=== PATIENT | male | born 2000 | race Caucasian/White ===

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

== ENCOUNTER 2023-03-28 08:56 | Emergency (ER) | payer MEDICAID, SELFPAY ==
[2023-03-28 08:57] VITALS: BP 175/101; PULSE 81; RESP 14; TEMP 35.5; O2SAT 98; BMI 44.7
--- NOTE | 2023-03-28 09:38 | NURSING ---
NO OLD EKGS
[2023-03-28 09:56] VITALS: RESP 18
--- NOTE | 2023-03-28 10:00 | RAD_ITS ---
STUDY: X-RAY CHEST REASON FOR EXAM: Male, 22 years old. Chest pain TECHNIQUE: Single AP portable view of the chest. COMPARISON: None. FINDINGS: EKG electrodes are seen. The lungs are clear and expanded. There is no demonstrated pleural abnormality. Normal size heart. Normal mediastinum and ranjit. Normal visualized pulmonary arteries. Normal visualized aortic arch and descending thoracic aorta. Normal visualized thoracic spine. Normal visualized ribs, clavicles, and shoulders. There is no demonstrated abnormality of the visualized soft tissue structures of the upper abdomen. RAD/Chest 1 View (Portable) IMPRESSION: Normal x-ray examination of the chest. Electronically Signed: Aguilar Baires MD at 10:23 EDT ,
[2023-03-28 10:07] LABS: Absolute Lymphocyte Count 2.37 X10^3/uL (0.83-4.51); Basophil# 0.05 X10^3/uL; Basophil% 0.5 % (0-1); Eosinophil# 0.13 X10^3/uL; Eosinophils% 1.4 % (0-5); Hematocrit 44.2 % (40-54); Hemoglobin 14.4 g/dL (13.0-16.5); Lymphocyte # 2.37 X10^3/ul (0.83-4.51); Lymphocyte % 25.3 % (19-41); Mean Corp Hgb Conc 32.6 g/dL (32-36); Mean Corpuscular Hgb 28.1 pg (27.0-32.0); Mean Corpuscular Volume 86.3 fL (80-94); Monocyte% 8.5 % (0-10); NRBC Flagged by Analyzer 0 % (0-5); Neutrophil # 5.98 X10^3/uL (2.7-7.7); Neutrophil % 63.9 % (47-70); Platelet Count 369 K/mm3 (150-450); RBC Distribution Width CV 12.9 % (11.6-14.6); RBC Distribution Width SD 40.2 fl (35.1-43.9); Red Blood Count 5.12 M/mm3 (4.6-6.2); White Blood Count 9.4 K/mm3 (4.4-11.0)
[2023-03-28 10:19] LABS: Anion Gap 6 (5-15); BUN 12 mg/dL (7-18); BUN/Creat Ratio 16.5 RATIO (10-20); Calcium,Total 9.3 mg/dL (8.5-10.1); Chloride 110 mmol/L (98-107); Creatinine, Serum 0.73 mg/dL (0.70-1.30); EST Glomerular Filtration Rate 143 mL/min (>60); Est Glom Filt Rate - Afr Amer 172 mL/min (>60); Estimated Creatinine Clearance 189.71 ml/min; Glucose 86 mg/dL (74-106); Potassium 4.5 mmol/L (3.5-5.1); Sodium Level 140 mmol/L (136-145); Troponin-I HS (w/2H Reflex) 7 pg/mL (3.0-78.0)
--- NOTE | 2023-03-28 10:19 | CT_ITS ---
STUDY: CT BRAIN WITHOUT CONTRAST REASON FOR EXAM: Male, 22 years old. altered mental status following the syncopal episode. RADIATION DOSAGE (If Supplied By Facility): CTDIvol = ( 44.99 ) mGy, DLP = ( 1559.91 ) mGycm TECHNIQUE: Transaxial CT imaging of the brain was performed without administration of intravenous contrast material. Individualized dose optimization techniques were used for this CT. COMPARISON: No relevant priors. FINDINGS: Normal soft tissue structures. Normal calvarium. Normal size ventricles and extra-axial spaces for the patient''s age. Normal white matter tracts of the cerebral hemispheres. Normal basal ganglia and thalami. Normal brainstem. Normal cerebellum. There is no intracranial hemorrhage. There are no findings of an acute ischemic infarction. Normal visualized paranasal sinuses. CT/Brain/Head without Contrast IMPRESSION: Normal unenhanced CT scan of the brain. Electronically Signed: Aguilar Baires MD at 12:46 EDT ,
--- NOTE | 2023-03-28 10:19 | CT_ITS ---
STUDY: CT CERVICAL SPINE WITHOUT CONTRAST REASON FOR EXAM: Male, 22 years old. Neck injury following a syncopal episode. RADIATION DOSAGE (If Supplied By Facility): CTDIvol = ( 36.03 ) mGy, DLP = ( 1559.91 ) mGycm TECHNIQUE: High resolution transaxial imaging was performed without contrast material. Sagittal and coronal images were reconstructed. Individualized dose optimization techniques were used for this CT. COMPARISON: None FINDINGS: Normal craniovertebral junction. Normal anterior atlantoaxial articulation. Normal odontoid process. There is straightening of the normal cervical lordosis. Normal vertebral bodies and posterior osseous elements. C2-3: Normal endplates. Normal disc height and morphology. Normal central canal and intervertebral neuroforamina. C3-4: Normal endplates. Normal disc height and morphology. Normal central canal and intervertebral neuroforamina. C4-5: Normal endplates. Normal disc height and morphology. Normal central canal and intervertebral neuroforamina. C5-6: Normal endplates. Normal disc height and morphology. Normal central canal and intervertebral neuroforamina. C6-7: Normal endplates. Normal disc height and morphology. Normal central canal and intervertebral neuroforamina. C7-T1: Normal endplates. Normal disc height and morphology. Normal central canal and intervertebral neuroforamina. Normal visualized soft tissue structures. CT/Spine Cervical without Contras IMPRESSION: There is straightening of the normal cervical lordosis. Electronically Signed: Aguilar Baires MD at 12:47 EDT ,
--- NOTE | 2023-03-28 10:21 | EX.ED.DYSGE1 ---
HPI History of Present Illness Chief Complaint: Syncope Narrative Narrative: This is a 22-year-old male presenting with an episode of syncope. This was unwitnessed. Mother states that her son was awake because he lives with her and she left for work. She called to see if he had gotten out of bed and it woke him up and he was laying on the floor. He states he was probably on the floor for about 25 minutes. He admitted to his mother on the way to the hospital this is happened a few times this last month. He states he does not have any prodrome prior to the incident. He states he can just be sitting playing video games and then wake up on the floor. Today it is occurred after waking up. No history of seizure disorder. Mother states that he seems a little bit confused currently and has been this way throughout the month and she did not know why, although she did not know he was having his episodes. Since they are unwitnessed we do not know if they were seizure. He has no loss of bladder or bowel. He has not bitten his tongue. Mother states that in he was told that he had underactive thyroid. Did not know what he is followed up to see if his thyroid is still underactive. Mother states that after that time he started packing on weight. Patient does not have chest pain or shortness of breath. He does have some element of chronic diarrhea the mother states. He has not had a fever, chills. He states he smokes marijuana but does not do other drugs. He is not a drinker. [facility] Home Medications NK 03/28/23 [History Last Taken Unknown] Allergy/AdvReac Type Severity Reaction Status Date / Time Penicillins Allergy Anaphylaxis Verified 07/18/16 16:36 Social History Smoking Status: Never smoker ROS ROS ED Constitutional Constitutional ED: Denies chills or fever(s) Eyes Eyes: Denies blurry vision or change in vision ENT ENT ED: Denies rhinorrhea or sore throat Cardiovascular Cardiovascular: Denies chest pain or palpitations Respiratory/Chest Respiratory/Chest: Denies cough or dyspnea Gastrointestinal Gastrointestinal: Reports diarrhea; Denies abdominal pain Genitourinary Genitourinary ED: Denies dysuria or hematuria Musculoskeletal Musculoskeletal: Denies arthralgias Integumentary Denies Abrasions Neurologic Neurologic: Denies headache(s) Psychiatric Psychiatric: Denies anxiety or depression EXAM Physical Exam Const Vital Signs: 03/28/23 08:57 03/28/23 09:11 03/28/23 09:35 Temperature 96 F L Temperature Source Temporal Pulse Rate 81 Pulse Rate [Lying] Pulse Rate [Sitting (for 1 minute prior to obtaining)] Pulse Rate [Standing (for 1 minute prior to obtaining)] Respiratory Rate 14 Respiratory Effort Normal Non-Labored Respiratory Pattern Normal Blood Pressure 175/101 H Blood Pressure [Lying] Blood Pressure [Sitting (for 1 minute prior to obtaining)] Blood Pressure [Standing (for 1 minute prior to obtaining)] Blood Pressure Mean 125 Blood Pressure Mean [Lying] Blood Pressure Mean [Sitting (for 1 minute prior to obtaining)] Blood Pressure Mean [Standing (for 1 minute prior to obtaining)] Pulse Ox 98 Oxygen Delivery Method Room Air Room Air 03/28/23 09:38 03/28/23 10:49 03/28/23 10:50 Temperature Temperature Source Pulse Rate Pulse Rate [Lying] 65 Pulse Rate [Sitting (for 1 minute prior to obtaining)] 73 Pulse Rate [Standing (for 1 minute prior to obtaining)] 85 Respiratory Rate Respiratory Effort Respiratory Pattern Blood Pressure Blood Pressure [Lying] 144/77 H Blood Pressure [Sitting (for 1 minute prior to obtaining)] 108/81 H Blood Pressure [Standing (for 1 minute prior to obtaining)] 132/70 H Blood Pressure Mean Blood Pressure Mean [Lying] 99 Blood Pressure Mean [Sitting (for 1 minute prior to obtaining)] 90 Blood Pressure Mean [Standing (for 1 minute prior to obtaining)] 90 Pulse Ox Oxygen Delivery Method Room Air 03/28/23 09:56 03/28/23 10:56 03/28/23 11:56 Temperature Temperature Source Pulse Rate Pulse Rate [Lying] Pulse Rate [Sitting (for 1 minute prior to obtaining)] Pulse Rate [Standing (for 1 minute prior to obtaining)] Respiratory Rate 18 18 18 Respiratory Effort Respiratory Pattern Blood Pressure Blood Pressure [Lying] Blood Pressure [Sitting (for 1 minute prior to obtaining)] Blood Pressure [Standing (for 1 minute prior to obtaining)] Blood Pressure Mean Blood Pressure Mean [Lying] Blood Pressure Mean [Sitting (for 1 minute prior to obtaining)] Blood Pressure Mean [Standing (for 1 minute prior to obtaining)] Pulse Ox Oxygen Delivery Method Positive obese General Appearance ED: NAD; Negative for pallor Nutritional Appearance: obese HEENT Reports moist mucous membranes Eyes Negative for PERRL or EOMs intact bilaterally Neck No no lymphadenopathy Resp normal respiratory effort and clear to auscultation bilaterally Auscultation: Negative for rales, rhonchi or wheezes Cardio regular rate and regular rhythm GI normal to inspection, nondistended, normoactive bowel sounds Neuro oriented x3 and CN's II-XII intact bilaterally Sensorium / Orientation: alert Psych mental status grossly normal Skin no rashes or lesions noted, no wounds and skin turgor normal General Skin Exam: Negative for jaundice or pallor MDM MDM MDM Narrative Medical decision making narrative: Patient presenting with 3 episodes of what is believed to be syncope this month. He does not recall any prodrome that happens before it. He states he just wakes up on the floor and is unsure why. No history of this in the past before this month. Patient also states he has a history of underactive thyroid. He has hit his head. Differential includes dehydration, electrolyte abnormality, anemia, epilepsy, narcolepsy, syncope, ACS, hypothyroid, drug abuse, dysrhythmia, intracranial hemorrhage. CBC to assess white blood cell count, hemoglobin, platelets, differential. BMP to assess renal function, electrolytes, glucose, anion gap. Lactic acid was ordered to differentiate seizure from syncope. Urinalysis to assess for UTI. Urine drug screen to assess for drug use. EKG, high-sensitivity troponin, chest x-ray to rule out cardiac or pulmonary etiology. CT brain to rule out mass or hemorrhage. CBC and BMP are unremarkable. Thyroid studies are normal. Lactic acid 0.7 and therefore is unlikely to have a seizure. Urine drug screen positive for marijuana which the patient admits to. EKG shows a normal sinus rhythm with a ventricular of 80 bpm without sign of ischemic change or dysrhythmia. CT brain negative for infection. X-ray of the chest on my interpretation shows no acute cardiopulmonary process. Radiologist interpretation agrees initial high sensitive troponin is 7 and the 2-hour troponin is 8. There is no significant interval change. Patient's work-up is ultimately negative. Patient requesting to be discharged home. We did talk to him about his sleep schedule is now he is telling me he gets up early and he stays up late. Also discussed the fact that he may have some sleep apnea. Patient does have health insurance and I recommended that he establish with a primary care provider. I did give him Dr. Reddy for follow-up from the ER. Impression: 1. Syncope 2. Confusion 3. Headache 4. Closed head injury Lab Data Labs: Laboratory Results - last 24 hr 03/28/23 03/28/23 03/28/23 09:10 09:10 09:10 WBC 9.4 RBC 5.12 Hgb 14.4 Hct 44.2 MCV 86.3 MCH 28.1 MCHC 32.6 RDW Std Deviation 40.2 RDW Coeff of Candelario 12.9 Plt Count 369 MPV 11.0 Immature Gran % (Auto) 0.400 Neut % (Auto) 63.9 Lymph % (Auto) 25.3 [place] % (Auto) 8.5 Eos % (Auto) 1.4 Baso % (Auto) 0.5 Absolute Neuts (auto) 6.0 Absolute Lymphs (auto) 2.37 Nucleated RBC % 0 Sodium 140 Potassium 4.5 Chloride 110 H Carbon Dioxide 24.0 Anion Gap 6 BUN 12 Creatinine 0.73 Estim Creat Clear Calc 189.71 Est GFR (MDRD) Af Amer 172 Est GFR (MDRD) Non-Af 143 BUN/Creatinine Ratio 16.5 Glucose 86 Lactic Acid Calcium 9.3 Troponin I High Sens 7 TSH 0.77 Free T4 0.99 Free T3 pg/dL 3.3 Urine Color Urine Clarity Urine pH Ur Specific [place] Urine Protein Urine Glucose (UA) Urine Ketones Urine Occult Blood Urine Nitrite Urine Bilirubin Urine Urobilinogen Ur Leukocyte Esterase Urine RBC Urine WBC Ur Squamous Epith Cells Urine Bacteria Urine Mucus Urine Opiates Screen Urine Methadone Screen Ur Barbiturates Screen Ur Phencyclidine Scrn Ur Amphetamines Screen MDMA (Ecstasy) Screen U Benzodiazepines Scrn Urine Cocaine Screen U Cannabinoids Screen Ur Drug Screen Comment 03/28/23 03/28/23 03/28/23 10:50 12:12 12:12 WBC RBC Hgb Hct MCV MCH MCHC RDW Std Deviation RDW Coeff of Candelario Plt Count MPV Immature Gran % (Auto) Neut % (Auto) Lymph % (Auto) [place] % (Auto) Eos % (Auto) Baso % (Auto) Absolute Neuts (auto) Absolute Lymphs (auto) Nucleated RBC % Sodium Potassium Chloride Carbon Dioxide Anion Gap BUN Creatinine Estim Creat Clear Calc Est GFR (MDRD) Af Amer Est GFR (MDRD) Non-Af BUN/Creatinine Ratio Glucose Lactic Acid 0.7 Calcium Troponin I High Sens TSH Free T4 Free T3 pg/dL Urine Color Yellow Urine Clarity Clear Urine pH 8.0 Ur Specific [place] 1.010 Urine Protein Negative Urine Glucose (UA) Normal Urine Ketones Negative Urine Occult Blood Negative Urine Nitrite Negative Urine Bilirubin Negative Urine Urobilinogen 1 H Ur Leukocyte Esterase Negative Urine RBC 0 SEEN Urine WBC 0 SEEN Ur Squamous Epith Cells 0-5 SEEN Urine Bacteria 0 SEEN Urine Mucus 0 SEEN Urine Opiates Screen NEGATIVE Urine Methadone Screen NEGATIVE Ur Barbiturates Screen NEGATIVE Ur Phencyclidine Scrn NEGATIVE Ur Amphetamines Screen NEGATIVE MDMA (Ecstasy) Screen NEGATIVE U Benzodiazepines Scrn NEGATIVE Urine Cocaine Screen NEGATIVE U Cannabinoids Screen POSITIVE H Ur Drug Screen Comment 03/28/23 12:20 WBC RBC Hgb Hct MCV MCH MCHC RDW Std Deviation RDW Coeff of Candelario Plt Count MPV Immature Gran % (Auto) Neut % (Auto) Lymph % (Auto) [place] % (Auto) Eos % (Auto) Baso % (Auto) Absolute Neuts (auto) Absolute Lymphs (auto) Nucleated RBC % Sodium Potassium Chloride Carbon Dioxide Anion Gap BUN Creatinine Estim Creat Clear Calc Est GFR (MDRD) Af Amer Est GFR (MDRD) Non-Af BUN/Creatinine Ratio Glucose Lactic Acid Calcium Troponin I High Sens 8 TSH Free T4 Free T3 pg/dL Urine Color Urine Clarity Urine pH Ur Specific [place] Urine Protein Urine Glucose (UA) Urine Ketones Urine Occult Blood Urine Nitrite Urine Bilirubin Urine Urobilinogen Ur Leukocyte Esterase Urine RBC Urine WBC Ur Squamous Epith Cells Urine Bacteria Urine Mucus Urine Opiates Screen Urine Methadone Screen Ur Barbiturates Screen Ur Phencyclidine Scrn Ur Amphetamines Screen MDMA (Ecstasy) Screen U Benzodiazepines Scrn Urine Cocaine Screen U Cannabinoids Screen Ur Drug Screen Comment Radiography Diagnostic Testing: Clinical Impression(s) from Imaging Studies Chest X-Ray 03/28/23 10:00 IMPRESSION: Normal x-ray examination of the chest. Electronically Signed: Aguilar Baires MD at 10:23 EDT , Brain CT 03/28/23 10:19 IMPRESSION: Normal unenhanced CT scan of the brain. Electronically Signed: Aguilar Baires MD at 12:46 EDT , Cervical Spine CT 03/28/23 10:19 IMPRESSION: There is straightening of the normal cervical lordosis. Electronically Signed: Aguilar Baires MD at 12:47 EDT , Discharge Plan Triage Chief Complaint: Syncope ED Provider: Salinas Monaco Dx/Rx/DC Orders Instructions: ED Fainting, Uncertain Cause Prescriptions: No Action NK Primary Care Provider: Care Physician,No Primary Referrals: Joan Reddy MD [Med Staff - [facility]] - 3-5 Days Care Physician,No Primary [Primary Care Provider] - Disposition Disposition: Home, Self Care
[2023-03-28 10:49] VITALS: BP 144/77; PULSE 65
[2023-03-28 10:50] VITALS: BP 108/81; BP 132/70; PULSE 73; PULSE 85
[2023-03-28 10:56] VITALS: RESP 18
[2023-03-28 11:06] LABS: Free T3 3.3 pg/mL (2.18-3.98); T4 Free Direct 0.99 ng/dL (0.76-1.46); Thyroid Stim Hormone (TSH) 0.77 uIU/mL (0.358-3.74)
--- NOTE | 2023-03-28 11:06 | CM.ED ---
Social Work SW introduced self and role. Discussed PCP information with patient and patient's mother. Pt's mother reports he was going to her physician but she thinks he no longer has medicaid. SW had registration verify and they were able to confirm he has [facility] medicaid which is active at this time. Information provided to patient and patient's mother. Nuria Maharaj MERCHANDISE HANDLER, LEADER TIER
[2023-03-28 11:34] LABS: Lactic Acid 0.7 mmol/L (0.4-1.9)
[2023-03-28 11:53] LABS: Reflex Troponin-HS? (from REC) Y
[2023-03-28 11:56] VITALS: RESP 18
[2023-03-28 12:22] LABS: Bacteria 0 SEEN /hpf (None Seen); Mucous, Urine 0 SEEN /hpf (<or=2+); Red Blood Cells-Urine 0 SEEN /hpf (0-5); White Blood Cells 0 SEEN /hpf (0-5)
[2023-03-28 12:36] LABS: Color, Urine Yellow (Yellow); Glucose, Dipstick Normal (Normal); Ketone-Dipstick Negative (Negative); Leukocyte Esterase-Dipstick Negative /ul (Negative); Nitrite-Dipstick Negative (Negative); Occult Blood-Urine Negative /ul (Negative); Protein-Dipstick Negative (Negative); Urine Bilirubin Dipstick Negative (Negative); Urine Clarity Clear (Clear); Urine Urobilinogen 1 mg/dl (Normal)
[2023-03-28 12:42] LABS: Amphetamine Urine VISTA NEGATIVE (<1000 ng/mL); Barbiturate Urine VISTA NEGATIVE (< 200 ng/mL); Benzodiazepine Urine VISTA NEGATIVE (< 200 ng/mL); Cocaine Urine VISTA NEGATIVE (< 300 ng/mL); Ecstacy Urine VISTA NEGATIVE (< 500 ng/mL); Methadone Urine VISTA NEGATIVE (< 300 ng/mL); PCP Urine VISTA NEGATIVE (< 25 ng/mL); THC Urine VISTA POSITIVE (< 50 ng/mL); Vista UDS pH Range 7
[2023-03-28 12:45] LABS: Troponin-I HS 8 pg/mL (3.0-78.0)
[2023-03-28 12:46] LABS: Squamous Epithelial Cells - UA 0-5 SEEN /hpf (0-5)
[2023-03-28] MEDS: Ketorolac 15 MG/ML Vial IV (13:46)
[2023-03-28] MEDS: Metoclopramide 10 MG/2 ML Vial IV (13:46)
[2023-03-28] MEDS: DiphenhydrAMINE 50 MG/ML Syringe 25 MG IV (13:47)
--- NOTE | 2023-03-28 14:22 | ED.RN ---
PIV removed per patients request.
--- NOTE | 2023-03-28 14:29 | ED.RN ---
Pt. status up for Marilu alfaro. Pt. mother called this RN into room to evaluate patient for a reaction to medication pt was given. Pt. a bit anxious in room but otherwise in so distress. Pt. then asked if he could leave and this RN told patient if he didn't want to stay he did not have to. Mother then states pt. would be staying and this RN stated that patient was 22 years old and if he really wanted to leave he would leave. Mother then stated I am gonna step out and settle down before I flip out. This RN got patient some water and removed his gown as he felt it was too tight. I also removed IV per patient request. As I was leaving the room pt. mother was on the phone and stated again I am going to need to you talk me down because I go off. This RN told mother she could wait in the waiting room if she was going to speak like that. Mother then called this RN a bitch as she was leaving.
== END 2023-03-28 14:54 | disposition home or self-care (01) ==
PROVIDERS: Emergency Provider Student in an Organized Health Care Education/Training Program; Visit Provider Student in an Organized Health Care Education/Training Program
DX: S09.90XA Unspecified injury of head, initial encounter (principal); X58.XXXA Exposure to other specified factors, initial encounter; R41.0 Disorientation, unspecified; R55 Syncope and collapse
CPT/HCPCS: 70450; 71045; 72125; 80048; 80307; 81001; 83605; 84439; 84443; 84481; 84484; 85025; 93005; 96374; 96375; 99285; A4216

== ENCOUNTER 2023-07-22 05:50 | Emergency (ER) | payer MEDICAID, SELFPAY ==
[2023-07-22 05:52] VITALS: BP 131/85; PULSE 90; RESP 18; TEMP 36.4; O2SAT 98; BMI 45.2
--- NOTE | 2023-07-22 06:02 | EDS_ITS ---
HPI History of Present Illness Chief Complaint: Abd Pain Informant: patient Associated Symptoms Associated Symptoms ED: cough Narrative Narrative: Patient states for the last 3 days he has been feeling worse, sore throat, periumbilical abdominal cramping with diarrhea, the cramping lets up temporarily after he has a bowel movement, cough, headaches, myalgias, and mild increase in his asthma symptoms with some wheezing and shortness of breath mostly when he is coughing. Several sick contacts at work with stomach flu symptoms. He states he is not drinking fluids okay, feels like he is not dehydrated, but he cannot keep food down because it makes him vomit. [facility] Medical History (Updated 07/22/23 @ 06:[address] Carlton Moore MD) Asthma Medical History no medical history Home Medications dicyclomine 10 mg capsule 20 mg (2 x 10 mg) PO Q6H PRN PRN abdominal pain #24 CAPSULES 07/22/23 [Rx Last Taken Unknown] ondansetron 4 mg disintegrating tablet 8 mg (2 x 4 mg) PO Q8H PRN PRN Nausea #20 tabs 07/22/23 [Rx Last Taken Unknown] Allergy/AdvReac Type Severity Reaction Status Date / Time Penicillins Allergy Anaphylaxis Verified 07/22/23 05:51 Family History no significant family his Social History Smoking Status: Current some day smoker tobacco type: cigarettes ROS ROS ED Constitutional Constitutional ED: Reports body ache(s), fatigue, headache(s) and malaise; Denies chills or fever(s) Eyes Eyes: Denies change in vision or diplopia ENT ENT ED: Reports rhinorrhea and sore throat; Denies ear pain Cardiovascular Cardiovascular: Denies chest pain or palpitations Respiratory/Chest Respiratory/Chest: Reports cough, dyspnea and wheezing; Denies sputum Gastrointestinal Gastrointestinal: Reports abdominal pain, diarrhea, nausea and vomiting Genitourinary Genitourinary ED: Denies dysuria or hematuria Musculoskeletal Musculoskeletal: Reports other; Denies back pain or neck pain Integumentary Denies abscess or rash Neurologic Neurologic: Reports headache(s); Denies paresthesias or weakness Psychiatric Psychiatric: Denies anxiety or suicidal thoughts EXAM Physical Exam Const Vital Signs: 07/22/23 05:52 Temperature 97.5 F L Temperature Source Temporal Pulse Rate 90 Respiratory Rate 18 Blood Pressure 131/85 H Blood Pressure Mean 100 Pulse Ox 98 Oxygen Delivery Method Room Air Positive well nourished, well developed and obese Constitutional Narrative: Malaised-appearing, no distress General Appearance ED: well developed and NAD Nutritional Appearance: obese HEENT Reports moist mucous membranes normocephalic and atraumatic Eyes PERRL and EOMs intact bilaterally Neck full ROM, no lymphadenopathy and supple Resp normal respiratory effort and clear to auscultation bilaterally Cardio regular rate, regular rhythm and no murmurs Rate: Negative for tachycardic GI non-tender and non-distended Auscultation: normoactive bowel sounds Palpation: soft Back/Spine no CVA tenderness General Back: other FROM Extremity normal to inspection and no calf tenderness General Extremety ED: Negative for edema, pulses abnormal or tenderness General Extremity: Negative for edema or pulses abnormal Neuro oriented x3, CN's II-XII intact bilaterally and no sensory deficits noted Sensorium / Orientation: awake and alert Motor Exam: strength 5/5 throughout Skin no rashes or lesions noted and no wounds MDM MDM MDM Narrative Medical decision making narrative: Given the patient's symptoms, COVID and influenza are also in the differential diagnosis both of which can cause diarrhea, swabbed for both and both are negative. Therefore more likely to be viral gastroenteritis of a different source, which there has been increased prevalence in the community in the last several weeks. Patient was given Zofran and dicyclomine, his cramping and nausea are better after. 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 Discharge Plan Triage Chief Complaint: Abd Pain ED Provider: Carlton Moore Dx/Rx/DC Orders Clinical Impression: Viral gastroenteritis Instructions: Viral Gastroenteritis Prescriptions: New dicyclomine 10 mg capsule 20 mg PO Q6H PRN PRN (Reason: abdominal pain) Qty: 24 0RF ondansetron [ondansetron] 4 mg tablet,disintegrating 8 mg PO Q8H PRN PRN (Reason: Nausea) Qty: 20 0RF Stand Alone Forms: ED Work / School Excuse Primary Care Provider: Care Physician,No Primary Referrals: Doctor,Your [Non-Staff] - 1 Week if not improving Disposition Disposition: Home, Self Care
[2023-07-22] MEDS: Dicyclomine 10 MG Capsule 20 MG PO (06:07)
[2023-07-22] MEDS: Ondansetron ODT 4 MG Tablet 8 MG PO (06:08)
[2023-07-22 07:00] VITALS: BP 127/67; PULSE 70; RESP 18; O2SAT 97
== END 2023-07-22 07:01 | disposition home or self-care (01) ==
PROVIDERS: Emergency Provider Emergency Medicine; Visit Provider Emergency Medicine
DX: A08.4 Viral intestinal infection, unspecified (principal); F17.210 Nicotine dependence, cigarettes, uncomplicated; E66.9 Obesity, unspecified
CPT/HCPCS: 87428; 99283; A4216

== ENCOUNTER 2023-10-22 04:31 | Emergency (ER) | payer SELFPAY ==
[2023-10-22 04:31] VITALS: BP 152/102; PULSE 99; RESP 18; TEMP 36.4; O2SAT 96; BMI 51.5
--- NOTE | 2023-10-22 04:41 | EDS_ITS ---
HPI History of Present Illness Chief Complaint: General Illness Informant: patient Narrative Narrative: 23-year-old male presents with 2 days of vomiting diarrhea slight cough. He notes a subjective fever. He states his friend at work on Saturday tested positive for COVID-19. Patient states he feels generalized body aches and a headache. He states his throat feels dry. Significant medical problems. No rashes. No dysuria. No rhinorrhea. PFSH PFSH Medical History Asthma Home Medications ondansetron 4 mg disintegrating tablet 4 mg PO Q6H PRN PRN Nausea #15 tabs 10/22/23 [Rx Last Taken Unknown] Allergy/AdvReac Type Severity Reaction Status Date / Time Penicillins Allergy Anaphylaxis Verified 10/22/23 04:33 Social History Smoking Status: Former smoker ROS ROS ED Constitutional Constitutional ED: Reports chills, fever(s), subjective and sweats; Denies weight loss Eyes Eyes: Denies change in vision or diplopia ENT ENT ED: Denies ear pain, rhinorrhea or sore throat Cardiovascular Cardiovascular: Denies chest pain, orthopnea, palpitations or racing heartbeat Respiratory/Chest Respiratory/Chest: Reports cough; Denies dyspnea or orthopnea Gastrointestinal Gastrointestinal: Reports diarrhea, nausea and vomiting; Denies abdominal pain Genitourinary Genitourinary ED: Denies dysuria, hematuria or urinary frequency Musculoskeletal Musculoskeletal: Denies arthralgias or myalgias Integumentary Denies abscess or rash Neurologic Neurologic: Reports headache(s); Denies weakness Psychiatric Psychiatric: Denies anxiety, depression, suicidal ideation or suicidal thoughts Endocrine Endocrinology: Denies polydipsia, polyphagia or polyuria Allergic/Immunologic Allergic/Immunologic ED: Denies mouth swelling, tongue swelling or urticaria EXAM Physical Exam Const Vital Signs: 10/22/23 04:31 10/22/23 04:31 10/22/23 04:34 Temperature 97.6 F L Temperature Source Oral Pulse Rate 99 Respiratory Rate 18 Respiratory Effort Normal Non-Labored Respiratory Pattern Normal Blood Pressure 152/102 H Blood Pressure Mean 118 Pulse Ox 96 Oxygen Delivery Method Room Air 10/22/23 06:38 Temperature Temperature Source Pulse Rate 76 Respiratory Rate 18 Respiratory Effort Respiratory Pattern Blood Pressure 118/74 Blood Pressure Mean 88 Pulse Ox 99 Oxygen Delivery Method Positive well nourished, well developed and obese General Appearance ED: well developed Nutritional Appearance: obese HEENT Reports normocephalic, head/scalp atraumatic and dry mucous membranes Mouth ED: Yes dry mucous membranes Mouth: dry mucous membranes Eyes PERRL and EOMs intact bilaterally Neck no lymphadenopathy, supple and no JVD Resp normal respiratory effort and clear to auscultation bilaterally Cardio regular rate, regular rhythm and no murmurs GI normal to inspection, nondistended, normoactive bowel sounds and non-tender Palpation: soft Back/Spine no CVA tenderness and normal ROM Extremity normal to inspection General Extremety ED: Negative for edema General Extremity: Negative for edema Neuro oriented x3 and CN's II-XII intact bilaterally Sensorium / Orientation: alert Motor Exam: strength 5/5 throughout Psych mental status grossly normal Mood & Affect: Negative for depressed or tearful Skin no rashes or lesions noted and no wounds MDM MDM MDM Narrative Medical decision making narrative: COVID and influenza were negative. Patient received IV fluids and Zofran. I believe the patient has a viral syndrome. He is currently afebrile with normal vital signs. He has not had any vomiting or diarrhea here. Does not require any supplemental oxygen. I think the patient can be discharged home with [facility] instructions for fever control and rest. Discharge Plan Triage Chief Complaint: General Illness ED Provider: Wicho Henderson Dx/Rx/DC Orders Clinical Impression: Acute dehydration, Gastroenteritis Instructions: ED Gastroenteritis, Viral (Adult) Prescriptions: New ondansetron [ondansetron] 4 mg tablet,disintegrating 4 mg PO Q6H PRN PRN (Reason: Nausea) Qty: 15 0RF Primary Care Provider: Care Physician,No Primary Referrals: Care Physician,No Primary [Primary Care Provider] - Disposition Disposition: Home, Self Care Discharge Date/Time: 10/22/23 06:39
[2023-10-22] MEDS: Ondansetron 4 MG/2 ML Vial IV (04:56)
[2023-10-22] MEDS: 0.9% Normal Saline (1000mL) 1,000 ML 1000 ML IV (04:56)
[2023-10-22 06:38] VITALS: BP 118/74; PULSE 76; RESP 18; O2SAT 99
== END 2023-10-22 06:39 | disposition home or self-care (01) ==
PROVIDERS: Emergency Provider Emergency Medicine; Visit Provider Emergency Medicine
DX: A08.4 Viral intestinal infection, unspecified (principal); Z68.43 Body mass index [BMI] 50.0-59.9, adult; E86.0 Dehydration; E66.9 Obesity, unspecified; Z20.828 Contact with and (suspected) exposure to other viral communicable diseases; Z87.891 Personal history of nicotine dependence
CPT/HCPCS: 87428; 96361; 96374; 99283; J7030; A4216; J2405